=== PATIENT | female | born 1985 | race Caucasian/White ===

== ENCOUNTER 2019-04-07 10:36 | Inpatient (IN) | payer OTHER ==
--- NOTE | 2019-04-07 10:50 | HP ---
Screened but not Admitted - Documentation of Visit Screened but not Admitted: Yes Level of Care Recommended at this Time: ER Evaluation/Care Additional Information/Explanation: 34 year old female present in [facility]WC ,brought in by family,. alter level of concious.intoxicated,unable to give information, dehydrated,. obi is 0.419,bp 121/84,p109,r 18,t 97.7. need er evaluation and medical clearance,to be tranferred to er at [facility]. for evaluation, stabilization and medical clearance. patient will be transported by [facility],endorsed to Jes Valdivia RN,. who will endorse to
[2019-04-07 16:16] VITALS: BMI 21.2
--- NOTE | 2019-04-07 18:33 | HP ---
CIWA Score Nausea/Vomitin-No Nausea/No Vomiting Muscle Tremors: None Anxiety: 5 Agitation: 4-Moderately Restless Paroxysmal Sweats: No Perspiration Orientation: 0-Oriented Tacttile Disturbances: 0-None Auditory Disturbances: 2-Mild Harshness/Frighten Visual Disturbances: 2-Mild Sensitivity Headache: 0-None Present CIWA-Ar Total Score: 13 - Admission Criteria OASAS Guidelines: Admission for Medically Managed Detox: Requires at least one of the followin. CIWA greater than 12 2. Seizures within the past 24 hours 3. Delirium tremens within the past 24 hours 4. Hallucinations within the past 24 hours 5. Acute intervention needed for co occurring medical disorder 6. Acute intervention needed for co occurring psychiatric disorder 7. Severe withdrawal that cannot be handled at a lower level of care (continued vomiting, continued diarrhea, abnormal vital signs) requiring intravenous medication and/or fluids 8. Admission ROS S - HPI Allergies/Adverse Reactions: Allergies Allergy/AdvReac Type Severity Reaction Status Date / Time No Known Allergies Allergy Verified 04/07/19 16:10 History of Present Illness: pt here requesting detox from etoh use , reports 3 bottle of wine /day x " a long time " , reports drinking in the mornings, + blackouts , + falls while intoxicated , reports bruising no other injuries , denies driving , returned from ED tobacco use ; reported , amount " i don't know " cocaine use : " I don't know " PMHX : anxiety , insomnia PSHX : denies lmp : on BCP Denies current SI / HI . Pt is poor historian 2/2 intoxication , current DINA 0.299 SHX ; evicted from residence , homeless , unemployed , college student , finances habit through " I don't know " Pt refusing to answer additional questions . Exam Limitations: Clinical Condition, Intoxication - Ebola screening Have you traveled outside of the country in the last 21 days: No (N) Have you had contact with anyone from an Ebola affected area: No Do you have a fever: No - Review of Systems Constitutional: See HPI EENT: reports: Other (glasses) Respiratory: reports: No Symptoms reported Cardiac: reports: No Symptoms Reported GI: reports: See HPI : reports: No Symptoms Reported Musculoskeletal: reports: See HPI Integumentary: reports: See HPI Neuro: reports: See HPI Endocrine: reports: No Symptoms Reported Psychiatric: reports: Agitated, Anxious, Depressed, Disorientated Patient History - Smoking Cessation Smoking history: Current every day smoker Have you smoked in the past 12 months: Yes Initiated information on smoking cessation: No - Substances abused Alcohol Substance route: Oral Frequency: Daily Amount used: WINE- 3 BTLS Age of first use: 20 Date of last use: 04/07/19 Family Disease History - Family Disease History Family History: Unable to Obtain (pt intoxicated , poor historian) Admission Physical Exam S - Vital Signs Vital Signs: Vital Signs - 24 hr 04/07/19 16:12 Temperature 97.6 F Pulse Rate 93 H Respiratory 18 Rate Blood Pressure 100/63 - Physical General Appearance: Yes: Moderate Distress, Alcohol on Breath, Intoxicated, Irritable, Anxious HEENTM: Yes: EOMI, Hearing grossly Normal, Normocephalic, Normal Voice Respiratory: Yes: Chest Non-Tender, Lungs Clear, Normal Breath Sounds Neck: Yes: No masses,lesions,Nodules, Trachea in good position Cardiology: Yes: Regular Rhythm, Regular Rate, S1, S2, Tachycardia Abdominal: Yes: Non Tender, Soft Musculoskeletal: Yes: Gait Steady Extremities: Yes: Non-Tender Neurological: Yes: Motor Strength 5/5, Disoriented, Depressed Affect Integumentary: Yes: Warm, Other (bruising noted scattered UE / LE) - Diagnostic (1) Alcohol intoxication Current Visit: Yes Status: Acute Qualifiers: Complication of substance-induced condition: with unspecified complication Qualified Code(s): F10.929 - Alcohol use, unspecified with intoxication, unspecified Breathalyzer - Breathalyzer Breathalyzer: 0.299 Urine Drug Screen - Test Device Lot number: [id number] Expiration date: 02/20/20 - Control Is test valid?: Yes - Results Drug screen NEGATIVE: No Urine drug screen results: NELLI-Cocaine, BZO-Benzodiazepines Inpatient Rehab Admission - Rehab Decision to Admit Inpatient rehab admission?: No
[2019-04-07] MEDS ORDERED: MAGNESIUM HYDROX 2400MG/30ML ORAL SUSPENSION 30 ML CUP PO PRN (18:55)
[2019-04-07] MEDS ORDERED: BISMUTH SUBSALICYLATE 524 MG/30 ML UD PO PRN (18:55)
[2019-04-07] MEDS ORDERED: MAGNESIUM CITRATE 300 ML BOTTLE PO PRN (18:55)
[2019-04-07] MEDS ORDERED: MAG HYDROX/AL HYDROX/SIMETH 30 ML UNIT-DOSE CUP PO PRN (18:55)
[2019-04-07] MEDS ORDERED: NICOTINE POLACRILEX 2 MG GUM BUC PRN (18:55)
[2019-04-07] MEDS ORDERED: MENTHOL/PHENOL 1 EACH UD MM PRN (18:55)
[2019-04-07] MEDS ORDERED: ACETAMINOPHEN 325 MG TABLET (FP) PO PRN ×2 (18:55)
[2019-04-07] MEDS ORDERED: IBUPROFEN 400 MG TABLET (FP) PO PRN (18:55)
[2019-04-07] MEDS: chlordiazePOXIDE HCL 25 MG CAPSULE PO PRN ×2 (20:17→23:47)
[2019-04-07] MEDS: hydrOXYzine PAMOATE 25 MG CAPSULE (FP) PO PRN (21:02)
[2019-04-07] MEDS ORDERED: chlordiazePOXIDE HCL 10 MG CAPSULE PO ONE (21:09)
[2019-04-07] MEDS ORDERED: chlordiazePOXIDE 5 MG CAPSULE PO ONE (21:30)
[2019-04-07] MEDS: chlordiazePOXIDE HCL 25 MG CAPSULE PO SCH (22:16)
[2019-04-07] MEDS: MELATONIN 5 MG TABLETS PO PRN (22:16)
[2019-04-07] MEDS: THIAMINE HCL 100 MG TABLET (FP) PO SCH (22:17)
[2019-04-07] MEDS: QUEtiapine FUMARATE 100 MG TABLET (FP) PO PRN (22:17)
[2019-04-08] MEDS: chlordiazePOXIDE HCL 25 MG CAPSULE PO SCH ×4 (06:47→22:07)
[2019-04-08 10:05] LABS: HEMATOCRIT 33.7 % (32.4-45.2); HEMOGLOBIN 11.1 GM/dL (10.7-15.3); MCH 30.2 pg (25.7-33.7); MEAN CELL VOLUME 91.4 fl (80-96); MEAN PLT VOLUME 6.5 fl (7.5-11.1); PLATELET COUNT 286 K/MM3 (134-434); RBC 3.68 M/mm3 (3.60-5.2); RDW 15.5 % (11.6-15.6); WHITE BLOOD COUNT 6.5 K/mm3 (4.0-10.0)
[2019-04-08 10:20] LABS: ALBUMIN 3.1 g/dl (3.4-5.0); BILIRUBIN,TOTAL 1.1 mg/dL (0.2-1); CALCIUM 8.4 mg/dL (8.5-10.1); CREATININE 0.5 mg/dL (0.55-1.3); POTASSIUM 3.8 mmol/L (3.5-5.1); TOT PROT 6.3 g/dl (6.4-8.2)
[2019-04-08] MEDS: PRENATAL VITAMINS W/ FOLIC ACID TABLET (FP) PO SCH (10:38)
--- NOTE | 2019-04-08 13:19 | PN ---
S CIWA - CIWA Score Nausea/Vomitin-No Nausea/No Vomiting Muscle Tremors: 3 Anxiety: 3 Agitation: 3 Paroxysmal Sweats: 3 Orientation: 0-Oriented Tacttile Disturbances: 0-None Auditory Disturbances: 0-None Visual Disturbances: 0-None Headache: 0-None Present CIWA-Ar Total Score: 12 S Progress Note (SOAP) Subjective: agitation restless sweats irritable interrupted sleep Objective: 04/08/19 13:19 Vital Signs Temperature 98.1 F 04/08/19 09:25 Pulse Rate 85 04/08/19 12:30 Respiratory Rate 18 04/08/19 12:30 Blood Pressure 109/67 04/08/19 09:25 O2 Sat by Pulse Oximetry (%) Laboratory Tests 04/07/19 04/08/19 04/08/19 17:02 07:00 07:00 WBC 6.5 RBC 3.68 Hgb 11.1 Hct 33.7 D MCV 91.4 MCH 30.2 MCHC 33.0 RDW 15.5 Plt Count 286 D MPV 6.5 L Sodium 136 Potassium 3.8 Chloride 101 Carbon Dioxide 28 Anion Gap 7 L BUN 10 Creatinine 0.5 L Est GFR (CKD-EPI)AfAm 148.42 Est GFR (CKD-EPI)NonAf 128.06 Random Glucose 80 Calcium 8.4 L Total Bilirubin 1.1 H AST 76 H ALT 50 Alkaline Phosphatase 71 Total Protein 6.3 L Albumin 3.1 L POC Urine HCG, Qual Negative RPR Titer 04/08/19 07:00 WBC RBC Hgb Hct MCV MCH MCHC RDW Plt Count MPV Sodium Potassium Chloride Carbon Dioxide Anion Gap BUN Creatinine Est GFR (CKD-EPI)AfAm Est GFR (CKD-EPI)NonAf Random Glucose Calcium Total Bilirubin AST ALT Alkaline Phosphatase Total Protein Albumin POC Urine HCG, Qual RPR Titer Nonreactive labs noted aaox3 ambulating no acute distress Assessment: 04/08/19 13:19 withdrawal sx Plan: continue detox increase fluids
[2019-04-08] MEDS: hydrOXYzine PAMOATE 25 MG CAPSULE (FP) PO PRN (14:15)
[2019-04-08] MEDS: chlordiazePOXIDE HCL 25 MG CAPSULE PO PRN ×2 (14:16→18:56)
--- NOTE | 2019-04-08 19:56 | PN ---
S Progress Note Note: Vital Signs Temperature 98.1 F 04/08/19 17:48 Pulse Rate 65 04/08/19 18:30 Respiratory Rate 18 04/08/19 18:30 Blood Pressure 112/68 04/08/19 17:48 O2 Sat by Pulse Oximetry (%) ETOH withdrawal tremors and anxiety baclofen BID PRN Increase PO fluids vistaril 509 mg Q6h continue to monitor
[2019-04-08] MEDS: QUEtiapine FUMARATE 100 MG TABLET (FP) PO PRN (21:35)
[2019-04-08] MEDS: hydrOXYzine PAMOATE 50 MG CAPSULE (FP) PO PRN (21:35)
[2019-04-08] MEDS: THIAMINE HCL 100 MG TABLET (FP) PO SCH (21:35)
[2019-04-08] MEDS: BACLOFEN 10 MG TABLET (FP) PO PRN (21:35)
[2019-04-08] MEDS ORDERED: BACLOFEN 10 MG TABLET (FP) PO SCH (22:00)
[2019-04-09] MEDS: chlordiazePOXIDE HCL 25 MG CAPSULE PO SCH ×3 (05:44→17:47)
[2019-04-09] MEDS: PRENATAL VITAMINS W/ FOLIC ACID TABLET (FP) PO SCH (10:05)
--- NOTE | 2019-04-09 12:04 | PN ---
S CIWA - CIWA Score Nausea/Vomitin-No Nausea/No Vomiting Muscle Tremors: 3 Anxiety: 2 Agitation: 2 Paroxysmal Sweats: 3 Orientation: 0-Oriented Tacttile Disturbances: 0-None Auditory Disturbances: 0-None Visual Disturbances: 0-None Headache: 0-None Present CIWA-Ar Total Score: 10 BHS Progress Note (SOAP) Subjective: c/o sweats, anxiety, tremor, interrupted sleep, and irritability. Objective: 04/09/19 12:03 Vital Signs 04/09/19 04/09/19 06:00 09:43 Temperature 98.2 F 98.3 F Pulse Rate 93 H 109 H Respiratory 16 18 Rate Blood Pressure 121/83 119/74 Assessment: 04/09/19 12:03 AOX3, in no respiratory distress full rom, ambulating in the unit. withdrawal symptoms. Plan: continue detox increase fluids.
[2019-04-09] MEDS: chlordiazePOXIDE HCL 25 MG CAPSULE PO PRN ×2 (12:05→15:17)
[2019-04-09] MEDS: hydrOXYzine PAMOATE 50 MG CAPSULE (FP) PO PRN (15:17)
[2019-04-09] MEDS: MELATONIN 5 MG TABLETS PO PRN (22:28)
[2019-04-09] MEDS: chlordiazePOXIDE HCL 10 MG CAPSULE PO SCH (22:28)
[2019-04-09] MEDS: THIAMINE HCL 100 MG TABLET (FP) PO SCH (22:28)
[2019-04-09] MEDS: QUEtiapine FUMARATE 100 MG TABLET (FP) PO PRN (22:30)
[2019-04-09] MEDS ORDERED: chlordiazePOXIDE HCL 10 MG CAPSULE PO PRN (23:00)
[2019-04-10] MEDS: chlordiazePOXIDE HCL 10 MG CAPSULE PO SCH ×3 (05:42→17:45)
[2019-04-10] MEDS: PRENATAL VITAMINS W/ FOLIC ACID TABLET (FP) PO SCH (10:20)
[2019-04-10] MEDS: BACLOFEN 10 MG TABLET (FP) PO PRN ×2 (14:41→22:28)
[2019-04-10] MEDS: hydrOXYzine PAMOATE 50 MG CAPSULE (FP) PO PRN ×2 (14:41→22:28)
--- NOTE | 2019-04-10 18:30 | PN ---
S CIWA - CIWA Score Nausea/Vomitin-No Nausea/No Vomiting Muscle Tremors: None Anxiety: 2 Agitation: 2 Paroxysmal Sweats: 2 Orientation: 0-Oriented Tacttile Disturbances: 0-None Auditory Disturbances: 0-None Visual Disturbances: 0-None Headache: 0-None Present CIWA-Ar Total Score: 6 BHS Progress Note (SOAP) Subjective: Sweating, runny nose. Patient requesting to leave [facility] today because she has classes at 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 Ur Coordinator encouraged patient to complete detox and leave tomorrow instead in which she agreed to leave tomorrow at 0600. Objective: 04/10/19 18:28 Last Vital Signs Temp Pulse Resp BP Pulse Ox 98.1 F 84 18 122/86 04/10/19 18:20 04/10/19 18:20 04/10/19 18:20 04/10/19 18:20 Laboratory Tests 04/07/19 04/08/19 04/08/19 17:02 07:00 07:00 WBC 6.5 RBC 3.68 Hgb 11.1 Hct 33.7 D MCV 91.4 MCH 30.2 MCHC 33.0 RDW 15.5 Plt Count 286 D MPV 6.5 L Sodium 136 Potassium 3.8 Chloride 101 Carbon Dioxide 28 Anion Gap 7 L BUN 10 Creatinine 0.5 L Est GFR (CKD-EPI)AfAm 148.42 Est GFR (CKD-EPI)NonAf 128.06 Random Glucose 80 Calcium 8.4 L Total Bilirubin 1.1 H AST 76 H ALT 50 Alkaline Phosphatase 71 Total Protein 6.3 L Albumin 3.1 L POC Urine HCG, Qual Negative RPR Titer 04/08/19 07:00 WBC RBC Hgb Hct MCV MCH MCHC RDW Plt Count MPV Sodium Potassium Chloride Carbon Dioxide Anion Gap BUN Creatinine Est GFR (CKD-EPI)AfAm Est GFR (CKD-EPI)NonAf Random Glucose Calcium Total Bilirubin AST ALT Alkaline Phosphatase Total Protein Albumin POC Urine HCG, Qual RPR Titer Nonreactive Labs reviewed Assessment: 04/10/19 18:28 Withdrawal symptoms Plan: Continue detox Encouraged PO water hydration Patient scheduled for discharge tomorrow at 0600, patient is stable for discharge
[2019-04-10] MEDS: THIAMINE HCL 100 MG TABLET (FP) PO SCH (22:26)
[2019-04-10] MEDS: QUEtiapine FUMARATE 100 MG TABLET (FP) PO PRN (22:29)
[2019-04-10] MEDS ORDERED: chlordiazePOXIDE HCL 10 MG CAPSULE PO SCH (23:00)
[2019-04-10 23:04] VITALS: BP 123/95; PULSE 80; TEMP 97.7
--- NOTE | 2019-04-11 09:39 | DS ---
[facility] Detox Discharge Summary Admission Date: 04/07/19 Discharge Date: 04/11/19 - History Present History: Alcohol Dependence - Physical Exam Results Vital Signs: Vital Signs Temperature 97.7 F 04/10/19 23:03 Pulse Rate 80 04/10/19 23:03 Respiratory Rate 16 04/11/19 03:30 Blood Pressure 123/95 04/10/19 23:03 O2 Sat by Pulse Oximetry (%) - Treatment Hospital Course: Detox Protocol Followed, Detoxed Safely, Responded well, Discharged Condition Good, Rehab Referral Accepted - Medication Discharge Medications: Ambulatory Orders Quetiapine Fumarate [Seroquel -] 100 mg PO HS 04/07/19 hydrOXYzine PAMOATE [Vistaril -] 50 mg PO HS 04/07/19 - Diagnosis (1) Alcohol intoxication Status: Acute Qualifiers: Complication of substance-induced condition: with unspecified complication Qualified Code(s): F10.929 - Alcohol use, unspecified with intoxication, unspecified - AMA Did Patient Leave Against Medical Advice: No (pt declined inpatient rehab)
== END 2019-04-11 07:20 | disposition home or self-care (01) | DRG 775 ==
LOC: YASAS 10:36 → Y6N 18:43
PROVIDERS: ADMIT Surgery; ATTEND Surgery
PROC: HZ2ZZZZ Detoxification Services for Substance Abuse Treatment (ICD-10-PCS; principal; 2019-04-07)
DX: F10.230 Alcohol dependence with withdrawal, uncomplicated (principal); F10.929 Alcohol use, unspecified with intoxication, unspecified
CPT/HCPCS: 36415; 80053; 81025; 85027; 86593; J0475

== ENCOUNTER 2019-04-07 11:12 | Emergency (ER) | payer OTHER ==
[2019-04-07 11:52] VITALS: BMI 18.0
--- NOTE | 2019-04-07 12:24 | PDOC ---
History of Present Illness - General Chief Complaint: Alcohol intoxication Stated Complaint: INTOX Time Seen by Provider: 04/07/19 12:13 History Source: Family Exam Limitations: No Limitations - History of Present Illness Initial Comments: 04/07/19 12:21 04/07/19 12:21 34y F hx of etoh abuse presents with complaint for detox - went to [facility] for detox but was sent to [facility] for evaluation as pt was altered. Pt is accompanied by her brother, notes she drinks etoh for the past 10 years and sometimes uses cocaine. Pt is noncooperative with history and most history obtained from her brother. Last drink earlier today. pt denies any heaadche, n/ v, cp, sob, abd pain, back pain, leg pain. 0 Past History - Past Medical History Allergies/Adverse Reactions: Allergies Allergy/AdvReac Type Severity Reaction Status Date / Time No Known Allergies Allergy Verified 04/07/19 16:10 Home Medications: Ambulatory Orders Quetiapine Fumarate [Seroquel -] 100 mg PO HS 04/07/19 hydrOXYzine PAMOATE [Vistaril -] 50 mg PO HS 04/07/19 COPD: No - Suicide/Smoking/Psychosocial Hx Smoking History: Never smoked Have you smoked in the past 12 months: No Information on smoking cessation initiated: No Hx Alcohol Use: Yes Drug/Substance Use Hx: No Review of Systems - Review of Systems Able to Perform ROS?: No (intoxicated) *Physical Exam - Vital Signs Last Vital Signs Temp Pulse Resp BP Pulse Ox 98.7 F 114 H 20 114/69 100 04/07/19 11:43 04/07/19 11:43 04/07/19 11:43 04/07/19 11:43 04/07/19 11:43 - Physical Exam Comments: 04/07/19 12:44 GENERAL: The patient is awake, alert, and fully oriented, Nontoxic - in no acute distress. HEAD: Normocephalic, atraumatic. EYES: extraocular movements intact, sclera anicteric, conjunctiva clear. ENT: Normal voice, Moist mucous membranes. NECK: Normal range of motion, supple LUNGS: Breath sounds equal, clear to auscultation bilaterally. No wheezes, no rhonchi, no rales. HEART: Regular rate and rhythm, normal S1 and S2 without murmur, rub or gallop. ABDOMEN: Soft, nontender, normoactive bowel sounds. No guarding, no rebound. . No CVA tenderness EXTREMITIES: Normal range of motion, no edema. No clubbing or cyanosis. No cords, erythema, or tenderness. NEUROLOGICAL: No facial assymetry, Normal speech, PSYCH: Normal mood, normal affect. SKIN: Warm, Dry, normal turgor, ED Treatment Course - LABORATORY CBC & Chemistry Diagram: 04/07/19 12:59 04/07/19 12:59 Medical Decision Making - Medical Decision Making 04/07/19 12:45 intoxicated no signs of head trauma will obtain blood work pt is slightly tachycardic = without signs of withdrawal 04/07/19 15:45 labs reviewed pt feeling improved awake - asking for detox HR improved atremulous on reexam will dc to [facility] for detox with brother 04/07/19 19:[address] Michele Stover (resident). I have independentaly examined the patient. I have reviewed his chart, we have discussed the case and I agree with his management *DC/Admit/Observation/Transfer Diagnosis at time of Disposition: Alcohol intoxication - Discharge Dispostion Disposition: HOME Condition at time of disposition: Stable - Referrals - Patient Instructions Additional Instructions: You are being discharge back to detox. Increase activity as tolerated. Resume a regular diet. Please follow up with primary doctor upon discharge from detox. If you experience any seizure, fever or chills please return to ER immediately. - Post Discharge Activity
[2019-04-07] MEDS ORDERED: FOLIC ACID INJECTION - 1 MG, THIAMINE HCL 100 MG, MULTIVIT INJECTION ADULT 10 ML in SOD... IVPB ONE (12:38)
[2019-04-07] MEDS ORDERED: SODIUM CHLORIDE 500 ML IV STA (12:38)
--- NOTE | 2019-04-07 12:54 | PDOC ---
History of Present Illness - General Chief Complaint: Alcohol intoxication Stated Complaint: INTOX Time Seen by Provider: 04/07/19 12:13 History Source: Patient, Parent(s), Family Exam Limitations: Clinical Condition - History of Present Illness Initial Comments: 04/07/19 12:44 34 yo F with pmhx of polysubstance abuse presents from [facility] with acute intoxication. She presented today after going to [facility]. She usually drinks 5 -6 large bottles of wine daily. Her last drink was this morning. She is concerned she will begin to withdrawl soon. SHe was sent from detox for acute intoxication and MD there would like her to be given fluids and checked for electrolyte imbalance before sending her back. She denies Cp,RUTH, SOB, abdominal pain, nausea or vomiting. Timing/Duration: 4-6 hours Severity: mild Past History - Travel Traveled outside of the country in the last 30 days: No Close contact w/someone who was outside of country & ill: No - Past Medical History Allergies/Adverse Reactions: Allergies Allergy/AdvReac Type Severity Reaction Status Date / Time No Known Allergies Allergy Verified 04/07/19 16:10 Home Medications: Ambulatory Orders Quetiapine Fumarate [Seroquel -] 100 mg PO HS 04/07/19 hydrOXYzine PAMOATE [Vistaril -] 50 mg PO HS 04/07/19 COPD: No - Suicide/Smoking/Psychosocial Hx Smoking History: Never smoked Have you smoked in the past 12 months: No Information on smoking cessation initiated: No Hx Alcohol Use: Yes Drug/Substance Use Hx: Yes Substance Use Type: Alcohol Hx Substance Use Treatment: Yes Patient Lives Alone: No Lives with/in: parents Review of Systems - Review of Systems Able to Perform ROS?: Yes Is the patient limited Nigerien proficient: No Constitutional: Yes: Diaphoresis, Loss of Appetite HEENTM: No: Recent change in vision Respiratory: No: Cough, Orthopnea, Shortness of Breath Cardiac (ROS): No: Chest Pain, Edema ABD/GI: Yes: Poor Appetite. No: Nausea, Vomiting Musculoskeletal: No: Back Pain Psychiatric: Yes: Anxiety, Depression *Physical Exam - Vital Signs Last Vital Signs Temp Pulse Resp BP Pulse Ox 98.7 F 114 H 20 114/69 100 04/07/19 11:43 04/07/19 11:43 04/07/19 11:43 04/07/19 11:43 04/07/19 11:43 - Physical Exam General Appearance: Yes: Appropriately Dressed, Moderate Distress HEENT: positive: CHRIS, Normal Voice Neck: positive: Supple Respiratory/Chest: positive: Lungs Clear, Normal Breath Sounds. negative: Respiratory Distress Cardiovascular: positive: S1, S2, Tachycardia. negative: Edema, JVD, Murmur Vascular Pulses: Dorsalis-Pedis (R): 2+, Doralis-Pedis (L): 2+ Gastrointestinal/Abdominal: positive: Normal Bowel Sounds, Soft Musculoskeletal: negative: CVA Tenderness Integumentary: positive: Normal Color, Dry, Warm. negative: Cyanotic ED Treatment Course - LABORATORY CBC & Chemistry Diagram: 04/07/19 12:59 04/07/19 12:59 Medical Decision Making - Medical Decision Making 04/07/19 14:43 34 yo F with pmhx of polysubstance abuse presents from [facility] with acute intoxication. Basic labs have been drawn and shows low glucose and low calcium. She is more awake now. Now slightly agitated. Complete IVF infusion. 04/07/19 15:06 She is stable for discharge back to detox. *DC/Admit/Observation/Transfer Diagnosis at time of Disposition: Alcohol intoxication Qualifiers: Complication of substance-induced condition: with unspecified complication Qualified Code(s): F10.929 - Alcohol use, unspecified with intoxication, unspecified - Discharge Dispostion Disposition: HOME Condition at time of disposition: Stable Decision to Admit order: No - Referrals - Patient Instructions Additional Instructions: You are being discharge back to detox. Increase activity as tolerated. Resume a regular diet. Please follow up with primary doctor upon discharge from detox. If you experience any seizure, fever or chills please return to ER immediately. - Post Discharge Activity
[2019-04-07 13:23] LABS: BASO % 1.1 % (0-2.0); EOS % 0.1 % (0-4.5); HEMATOCRIT 39.9 % (32.4-45.2); HEMOGLOBIN 13.1 GM/dL (10.7-15.3); LYMPH % 26.6 % (8-40); MCH 29.9 pg (25.7-33.7); MCHC 32.8 g/dl (32.0-36.0); MEAN CELL VOLUME 91.1 fl (80-96); NEUT % 67.2 % (42.8-82.8); PLATELET COUNT 380 K/MM3 (134-434); RBC 4.38 M/mm3 (3.60-5.2); RDW 15.7 % (11.6-15.6); WHITE BLOOD COUNT 6.8 K/mm3 (4.0-10.0)
[2019-04-07 14:04] LABS: ALBUMIN 3.6 g/dl (3.4-5.0); BILIRUBIN,TOTAL 0.3 mg/dL (0.2-1); CREATININE 0.5 mg/dL (0.55-1.3); MAGNESIUM 2.4 mg/dL (1.8-2.4); POTASSIUM 4.1 mmol/L (3.5-5.1); TOT PROT 7.5 g/dl (6.4-8.2)
[2019-04-07 15:34] VITALS: BP 135/72; PULSE 102; TEMP 98.7
== END 2019-04-07 15:30 | disposition home or self-care (01) ==
LOC: JER 11:12
PROC: 3E033GC Introduction of Other Therapeutic Substance into Peripheral Vein, Percutaneous Approach (ICD-10-PCS; principal; 2019-04-07)
DX: F10.120 Alcohol abuse with intoxication, uncomplicated (principal); Y90.9 Presence of alcohol in blood, level not specified
CPT/HCPCS: 36415; 80053; 83735; 85025; 99283-25; J7030